=== PATIENT | male | born 1945 | race Caucasian/White ===

== ENCOUNTER 2025-05-01 00:14 | Emergency (ER) | payer BC, MEDICARE ==
[~2025-05-01] VITALS: Ht 188 cm; Wt 100.0 kg
[2025-05-01] MEDS: LIDOCAINE 2% MDV 20 ML VIAL SC ONE (03:10)
[2025-05-01] MEDS: BOOSTRIX VACCINE (TETANUS/DIPHTH/ACEL. PERTUSSIS) 0.5 ML SYR IM.IMMUN ONE (03:32)
[2025-05-01] MEDS: NEOSPORIN OINT 0.9 GM PKT TOP ONE (03:36)
[2025-05-01 03:42] VITALS: BP 132/78; TEMP 98.1; O2SAT 97
== END 2025-05-01 03:44 | disposition home or self-care (01) ==
LOC: M ED 00:14
DX: S01.01XA Laceration without foreign body of scalp, initial encounter (principal); W01.0XXA Fall on same level from slipping, tripping and stumbling without subsequent striking against object, initial encounter; Y92.410 Unspecified street and highway as the place of occurrence of the external cause; Y93.89 Activity, other specified; Y99.9 Unspecified external cause status; M43.02 Spondylolysis, cervical region